=== PATIENT | male | born 1960 | race Caucasian/White ===

== ENCOUNTER → 2018-02-26 | Outpatient (CLI) | payer OTHER ==
[~2018-02-26] MED LIST: AVANDARYL 4 MG-1 TA1 PO; MICARDIS40 MG PO; SYNTHROID112 MCG PO; VYTORIN 10/20 M1 TAB PO
== END | disposition home or self-care (01) ==
LOC: RX STUDY 08:25
DX: Z13.810 Encounter for screening for upper gastrointestinal disorder (principal)

== ENCOUNTER 2022-08-27 12:34 | Emergency (ER) | payer OTHER ==
[~2022-08-27] VITALS: Ht 157.5 cm; Wt 86.2 kg
[2022-08-27] MEDS ORDERED: JENTADUETO 2.51 EAC2 PO (13:11)
[2022-08-27] MEDS ORDERED: ATORVASTATIN CA40 MG PO (13:11)
[2022-08-27] MEDS ORDERED: CHILDREN'S ASPI81 MG PO (13:12)
[2022-08-27] MEDS ORDERED: AMLODIPINE-OLM1 EAC1 PO (13:12)
[2022-08-27] MEDS ORDERED: LOSARTAN POTASS50 MG PO (13:13)
[2022-08-27] MEDS ORDERED: GLIMEPIRIDE4 M1 PO (13:13)
[2022-08-27] MEDS ORDERED: PROZAC40 MG PO (13:13)
== END 2022-08-27 18:11 | disposition home or self-care (01) ==
LOC: ER 12:34
DX: I63.9 Cerebral infarction, unspecified (principal); I10 Essential (primary) hypertension; Z88.8 Allergy status to other drugs, medicaments and biological substances; Z91.018 Allergy to other foods

== ENCOUNTER → 2022-08-29 | Emergency (ER) | payer OTHER ==
[~2022-08-29] VITALS: Ht 152.4 cm; Wt 90.7 kg
[~2022-08-29] MED LIST changes: +AMLODIPINE-OLM1 EAC1 PO; +ATORVASTATIN CA40 MG PO; +CHILDREN'S ASPI81 MG PO; +GLIMEPIRIDE4 M1 PO; +JENTADUETO 2.51 EAC2 PO; +LOSARTAN POTASS50 MG PO; +PROZAC40 MG PO
== END | disposition home or self-care (01) ==
LOC: ER 10:57
DX: I63.9 Cerebral infarction, unspecified (principal); R27.0 Ataxia, unspecified; R46.89 Other symptoms and signs involving appearance and behavior; I10 Essential (primary) hypertension

== ENCOUNTER 2022-11-21 11:05 | Emergency (ER) | payer OTHER ==
[~2022-11-21] VITALS: Ht 157.5 cm; Wt 88.5 kg
[2022-11-21] MEDS ORDERED: PLAVIX75 MG (11:19)
== END 2022-11-21 14:55 | disposition home or self-care (01) ==
LOC: ER 11:05
DX: E11.40 Type 2 diabetes mellitus with diabetic neuropathy, unspecified (principal); M79.604 Pain in right leg; M79.605 Pain in left leg; M79.671 Pain in right foot; M79.672 Pain in left foot; I10 Essential (primary) hypertension; Z91.018 Allergy to other foods